=== PATIENT | female | born 1995 | race Hispanic/Latino ===

== ENCOUNTER 2021-08-27 17:32 | Emergency (ER) | payer BC ==
[2021-08-27] MEDS ORDERED: Ibuprofen 800 MG TAB ONE (18:35)
== END 2021-08-27 18:39 | disposition home or self-care (01) ==
LOC: ERS 17:32
DX: N94.6 Dysmenorrhea, unspecified (principal); M25.561 Pain in right knee; M25.562 Pain in left knee
CPT/HCPCS: 99283